=== PATIENT | female | born 1960 | race Caucasian/White ===

== ENCOUNTER 2018-06-11 08:01 | Outpatient (CLI) | payer BC, SELFPAY ==
[2018-06-11 09:27] LABS: HCT 42.9 % (36.0-46.0); HGB 13.9 g/dL (12.0-15.5); Mean Corp. HGB Concentration 32.4 g/dL (32.0-36.0); Mean Corpuscular Hemoglobin 29.7 pg (27.0-33.0); Mean Corpuscular Volume 91.7 fL (80-95); Mean Platelet Volume 9.9 fL (8.0-11.0); Platelet Count 220 x1000/uL (130-400); RBC 4.68 m/cumm (4.00-5.20); White Blood Cell Count 4.43 k/cumm (4.4-10.8)
[2018-06-11 09:35] LABS: ALT 21 U/L (12-78); AST 17 U/L (15-37); Albumin 3.7 g/dL (3.4-5.0); Alkaline Phosphatase 101 U/L (46-116); Anion Gap 9.5 mmol/L (3-11); BUN 18 mg/dL (7-18); Bilirubin, Total 0.5 mg/dL (0.2-1.0); CO2 26.5 mmol/L (21.0-32.0); CREATININE 0.66 mg/dL (0.55-1.02); Calcium 8.8 mg/dL (8.5-10.1); Chloride 104 mmol/L (98-107); Cholesterol 227 mg/dL (50-200); Glucose 96 mg/dL (70-100); HDL Cholesterol 81 mg/dL (40-60); LDL CHOLESTEROL 124 mg/dL (<100); Potassium 4.3 mmol/L (3.5-5.1); Sodium 140 mmol/L (136-145); Total Protein 7.4 g/dL (6.4-8.2); Triglyceride 83 mg/dL (30-150)
== END 2018-06-11 08:21 ==
PROVIDERS: PCP Family Medicine; Visit Provider Family Medicine
DX: Z00.00 Encounter for general adult medical examination without abnormal findings (principal); Z13.220 Encounter for screening for lipoid disorders; Z13.228 Encounter for screening for other metabolic disorders; Z13.0 Encounter for screening for diseases of the blood and blood-forming organs and certain disorders involving the immune mechanism; Z78.0 Asymptomatic menopausal state
CPT/HCPCS: 36415; 80053; 80061; 83721; 85027

== ENCOUNTER 2018-09-03 13:56 | Outpatient (CLI) | payer BC, SELFPAY ==
--- NOTE | 2018-09-03 15:00 | DI.RAD_ITS ---
SYMPTOMS/DIAGNOSIS: [facility], Z00.00, MENOPAUSE, Z78.0 DEXA SCAN: DEXA scan was performed according to the usual protocol. Findings for lumbar spine scanning are a T score of -0.4. Findings for left hip scanning are a T score of -0.6 with left femoral neck T score of -0.5. Findings for left forearm scanning are a T score of 0.1. CONCLUSION: Findings consistent with normal bone density according to the WHO criteria. The lateral vertebral scanogram shows no evidence of a vertebral compression fracture.
--- NOTE | 2018-09-03 15:16 | DI.MAMMO_ITS ---
SYMPTOM/DIAGNOSIS: SCREENING, Z12.31, [facility], Z00.00 MAMMOGRAMS: Mammograms were interpreted according to the usual protocol including computer analysis with CAD system, tomosynthesis and C view imaging. Comparison is with the prior examinations. There is a question of an area of architectural distortion in the upper left breast seen on the mediolateral oblique view. Spot compression views requested. Ultrasound may be indicated at that time. No other suspicious masses or microcalcifications are seen. The skin and axillae are unremarkable. IMPRESSION: Additional views of the left breast as described above. Category 0, breast density B. MQSA ASSESSMENT OF FINDINGS: Incomplete: Needs additional imaging evaluation. Category 0. Patient will receive a letter notifying them of these results. BI-RADS category B. There are scattered areas of fibroglandular density.
== END 2018-09-03 14:16 ==
PROVIDERS: PCP Family Medicine; Visit Provider Family Medicine
DX: Z00.00 Encounter for general adult medical examination without abnormal findings (principal); Z12.31 Encounter for screening mammogram for malignant neoplasm of breast; R92.8 Other abnormal and inconclusive findings on diagnostic imaging of breast; Z13.820 Encounter for screening for osteoporosis; Z78.0 Asymptomatic menopausal state
CPT/HCPCS: 77063; 77067; 77080

== ENCOUNTER 2018-09-24 00:40 | Outpatient (CLI) | payer BC, SELFPAY ==
--- NOTE | 2018-09-24 14:20 | DI.COMBO_ITS ---
SYMPTOM/DIAGNOSIS: F/U ABNORMAL MAMMO, AREA OF ARCHITECTURAL DISTORTION IN UPPER LEFT BREAST ADDITIONAL VIEWS OF THE LEFT BREAST AND A LEFT BREAST ULTRASOUND: Additional images are interpreted according to the usual protocol including tomosynthesis and 2D imaging. Additional views of the left breast fail to show a persistent discrete mass. A left breast ultrasound was performed. The upper outer and upper inner quadrants were evaluated sonographically. No cystic or solid masses were seen. IMPRESSION: No evidence for malignancy. Yearly mammography is recommended. Category 1, breast density B. The findings were discussed with the patient on the date of the examination. SA ASSESSMENT OF FINDINGS: Negative. Category 1. Patient will receive a letter notifying them of these results. BI-RADS category B. There are scattered areas of fibroglandular density.
== END 2018-09-24 01:00 ==
PROVIDERS: PCP Family Medicine; Visit Provider Family Medicine
DX: Z12.31 Encounter for screening mammogram for malignant neoplasm of breast (principal); R92.8 Other abnormal and inconclusive findings on diagnostic imaging of breast; N64.59 Other signs and symptoms in breast
CPT/HCPCS: 76642; 77063; 77067

== ENCOUNTER 2018-11-07 10:47 | Outpatient (REF) | payer BC, SELFPAY ==
[2018-11-07 21:45] LABS: Bilirubin Negative (Negative); Blood Moderate (Negative); Clarity Clear (Clear); Glucose Negative (Negative); Ketones Negative (Negative); Leukocyte Esterase Small (Negative); Nitrite Negative (Negative); Urobilinogen 0.2 EU/dL (Up TO 0.2)
[2018-11-07 22:01] LABS: Bacteria Few HPF (Negative); C & S Indicated? No; Casts Negative LPF (Negative); Crystals Negative HPF (Negative); Epithelial Cells Rare HPF (Negative); Mucus Negative (Negative); Other Cells Rare Renal (Negative); WBC 0-2 HPF (0-5)
== END 2018-11-07 11:07 ==
LOC: NCHCN 10:47
PROVIDERS: PCP Family Medicine; Visit Provider Family Medicine
DX: R30.0 Dysuria (principal)
CPT/HCPCS: 81003; 81015

== ENCOUNTER 2018-12-25 12:53 | Outpatient (REF) | payer BC, SELFPAY | END 2018-12-25 13:13 | LOC: NCHCN 12:53 | PROVIDERS: PCP Family Medicine; Visit Provider Family Medicine | DX: R30.0 Dysuria (principal) | CPT/HCPCS: 87086 ==

== ENCOUNTER 2020-03-16 02:44 | Outpatient (CLI) | payer BC, SELFPAY ==
[2020-03-17 17:19] LABS: COVID-19 RT-PCR UVMMC Result Negative (Negative)
== END 2020-03-16 03:04 ==
PROVIDERS: PCP Family Medicine; Visit Provider Surgery
DX: Z11.52 Encounter for screening for COVID-19 (principal); Z01.818 Encounter for other preprocedural examination
CPT/HCPCS: U0003

== ENCOUNTER 2020-03-19 11:05 | Day surgery (SDC) | payer BC, SELFPAY ==
[2020-03-19 11:35] VITALS: BP 120/84; PULSE 83; RESP 14; TEMP 36.3; O2SAT 98
[2020-03-19] MEDS: Lactated Ringers 1,000 ML 80 ML IV (11:55)
--- NOTE | 2020-03-19 12:42 | HPE_ITS ---
Date of service: 03/19/20 Time of Service: 12:43 Assessment and Plan Assessment and plan (1) Colon polyps: Status: Acute Assessment and plan: Plan:Colonscopy w/ MAC The patient will be scheduled by my office. The pt understands that they need to do a bowel prep and the importance of hydration during this. The patient understands there is a theoretical risk of renal failure. For healthy patients we use Gatorade/Miralax Prep. For anyone with renal concerns- GoLytely will be used. Plavix and coumadin will need to be held except in unusual circumstances. Patients in A. Fib do not need to be bridged with Lovenox or on CVA prophylaxis. A baby ASA can be continued but full dose ASA needs to be stopped for 10 days prior to the procedure. A complete H & P is required within 30 days of the procedure. MAC is used for the colonoscopy. Colonoscopy does not require antibiotics prophylaxis. Risks: Informed consent is obtained for the procedural (explained in simple layman's terms that the pt and/or family could understand) explaining risks vs benefits and alternatives to the procedure and consequences if we do not do the procedure and need/rational for the procedure. Risks include but are not limited to: bleeding, infection, perforation of colon. This would necessitate emergency surgery to repair the damage w/ possible ostomy; and other associated complications w/ the required surgery. Also complications of anesthesia including aspiration, DC/CVA/. I discussed with the patient would they could expect during the procedure, post procedure and recovery time and risks. The patient understands that they need to have a ride home after the procedure. The patient was given all this information in writing and expressed understanding. Thank you for allowing me to participate in the care of this Patient. A copy of the Endoscopy report will be forwarded to your office. If there are any questions or concerns please feel free to contact our office. CARDIAC CONDITION HIGH RISK MODERATE RISK LOW RISK Prosthetic heart valves including bioprosthetic and homograft valves X Prior history of IE X Complex cyanotic congenital heart diseases such as single ventricle states, transpostion of the great arteries, and tetralogy of Fallot X Surgically constructed systemic or pulmonary conduits X History of Present Illness Consults Consult date: 03/19/20 Narrative: The patient is here for Colonoscopy pre-op. Last Colonoscopy was a number of years ago, which she reports was remarkable for polyps. She has no family history of colon cancer. She has not had any bowel habit changes. -Discussed colonoscopy bowel prep as well as the procedure. Discussed possible complications of the procedure to include bleeding, pain, perforation, missed small lesion/polyp, sore throat, aspiration and adverse reaction to the medications. Questions were answered to patient?s satisfaction. No guarantees were implied or given. She will hold her Vitamin D and herbal supplements x 5 days prior to her procedure. Risks: Informed consent is obtained for the procedural (explained in simple layman's terms that the pt and/or family could understand) explaining risks vs benefits and alternatives to the procedure and consequences if we do not do the procedure and need/rational for the procedure. Risks include but are not limited to: bleeding, infection, perforation of colon. This would necessitate emergency surgery to repair the damage w/ possible ostomy; and other associated complications w/ the required surgery. Also complications of anesthesia including aspiration, DC/CVA/. I discussed with the patient would they could expect during the procedure, post procedure and recovery time and risks. The patient understands that they need to have a ride home after the procedure. The patient was given all this information in writing and expressed understanding. I have no history of her last colonoscopy report or pathology. [facility] Medical History (Updated 03/19/20 @ 12:47 by Luisana Martinez DO) Bee sting allergy Colon polyps Food allergy Surgical History History of colonoscopy Social History Smoking/Tobacco Use Status: Never Smoking risk assessment performed?: Yes Alcohol Intake: current Alcohol Intake frequency: 0-2 drinks per day Alcohol type: wine Drug use: Never Substance use type: does not use Do you feel safe at home: Yes Do you feel safe in your relationship?: Yes Meds Home Medications and Allergies Home Medications Medication Instructions Recorded Confirmed Type cholecalciferol (vitamin D3) 10 10 mcg PO DAILY 10/24/19 03/19/20 History mcg (400 unit) capsule conjugated estrogens 0.625 mg/gram 0.625 mg VG DAILY 10/24/19 03/19/20 History vaginal cream cranberry extract 250 mg capsule 250 mg PO DAILY 02/13/20 03/19/20 History multivitamin 1 tab PO DAILY 02/13/20 03/19/20 History polyethylene glycol 3350 17 238 g PO ONCE #238 g 02/13/20 03/19/20 Rx gram/dose oral powder bisacodyl 5 mg tablet,delayed 5 mg PO ONCE #4 tab 03/10/20 03/19/20 Rx release Allergies Allergy/AdvReac Type Severity Reaction Status Date / Time sulfamethoxazole Allergy Mild Fever and Verified 02/13/20 14:31 [From Bactrim] Hives trimethoprim [From Bactrim] Allergy Mild fever and Verified 02/13/20 14:31 hives Exam Narrative Exam Narrative: GENERAL APPEARANCE: Alert, healthy appearance, oriented, in no acute distress HYDRATION: Well hydrated HEAD, EYES, EARS, NECK, and Throat: Head is normocephalic, pupils equal, round, reactive to light and accommodation, ocular movement intact, sclera clear and no jaundice. Dentition intact. NECK: Supple, no lymphadenopathy, LUNGS: normal respiration, clear to auscultation HEART: Regular rate and rhythm, normal heart sounds, EXTREMITY: No edema or cyanosis, ABDOMEN: soft and non-tender today NEURO: CN: Intact. Results Last Vital Signs Temp 36.3 C L 03/19/20 11:35 Pulse 83 03/19/20 11:35 Resp 14 03/19/20 11:35 BP 120/84 03/19/20 11:35 Pulse Ox 98 03/19/20 11:35 COVID-19 Screening Have you, or household traveled for leisure in last 14 days?: No Had IN PERSON contact w/suspected or confirmed C-19 person: No
--- NOTE | 2020-03-19 13:03 | W.PM.DSUDISC ---
Discharge Plan Disposition Patient Disposition: HOME Condition: Good Discharge Details Reason For Visit: colon scope Attending Provider: Luisana Martinez Primary Care Provider: Lilliana Bhakta Home Meds and New Rx's Prescriptions: Continued multivitamin Tablet 1 tab PO DAILY RF: 0 cranberry extract 250 mg capsule 250 mg PO DAILY RF: 0 cholecalciferol (vitamin D3) 10 mcg (400 unit) capsule 10 mcg PO DAILY RF: 0 Premarin 0.625 mg/gram cream 0.625 mg VG DAILY RF: 0 Discontinued polyethylene glycol 3350 17 gram/dose powder 238 g PO ONCE Qty: 238 RF: 0 bisacodyl [Dulcolax (bisacodyl)] 5 mg tablet,delayed release (DR/EC) 5 mg PO ONCE Qty: 4 RF: 0 Discharge Instructions Additional Instructions: Findings:normal Follow up: if you develop any abdominal pain that persists after more than 48hrs, unexplained weight loss, pain or difficulty having a BM that persists for more than two weeks, or rectal bleeding that persists after 2 weeks., seek medical attention. Please call if you develop: fevers >101.5 Nausea or Vomiting Abdominal pain that is not transient DAY SURGERY UNIT POST COLONOSCOPY INSTRUCTIONS 1. Because there will be medication in your system for the next 24 hours, you may feel a little sleepy. Your coordination will be affected. Therefore: a. Do not drive or operate dangerous equipment for 24 hours. b. Do not drink alcohol beverages for 24 hours (not even beer). c. Plan to go home and rest for the day. 2. Generally there are no restrictions on your activity after a day or so has gone by, but you may feel a bit fatigued for a few days. 3 After you arrive home you may have a light meal and return to a normal diet as you can tolerate it without feeling sick to your stomach. 4. After surgery, you may feel pain or discomfort. This should be only transient, but if it persists please contact your doctor. 5. If there are any questions regarding the findings of your procedure, please feel free to contact your doctor. 6. If you are unable to contact your doctor with a problem, contact the hospital at [phone]. 7. Continue all your regular medications unless directed otherwise. I understand the above instructions and have no questions. Signature of Patient or Responsible Adult Escort Date/Time Name of Responsible Adult Escort Signature of Nurse Date/Time Activity:: no lifting over 20 pounds or strenuous activity x24 hours. Diet:: Small light meals x24 hours. DS: Diagnosis Discharge Diagnosis (1) Colon polyps: Status: Acute
[2020-03-19 14:05] VITALS: BP 129/74; PULSE 61; RESP 18; TEMP 36; O2SAT 99
--- NOTE | 2020-03-28 21:19 | W.COLOREPORT ---
Date of service: 03/19/20 Time of Service: 11:00 Colonoscopy Report Date of procedure: 03/19/20 Pre-op diagnosis general: a. POLYPS Post-op diagnosis procedure note: same Surgeon: Luisana Martinez Anesthesia proc note operative: GETA Pathology: none sent Complications: None Disposition: same day Prep: Miralax/Dulcolax Retraction Time: 9MINS Procedure Description: After informed consent was obtained the patient was taken to the procedure room and placed in a left decubitous position. Monitors were applied and a time out was done. The patients name, date of , procedure, allergies to medications and metal in their body was reviewed. The patient was then sedated. Once sedated and comfortable a rectal exam was done. External exam was normal. Internal exam revealed a normal sphincter tone and no palpable masses. The scope was then introduced and retrofelexed. no internal hemorrhoids were identified. The scope was then advanced to the cecum w/out difficulty. The TI and appendiceal orifice were identified. The prep was good. The scope was then slowly retracted over 9 minutes back into the rectum. There were no AVMs, polyps, diverticula apparent. The mucosa is pink and healthy.. The scope was removed and the patient was woken up and taken back to Same day surgery in stable condition. The patient tolerated the procedure well and there were no immediate complications. Follow up: The patient should follow up in 10 years unless they develop changes in bowel habits or other new gastrointestinal complaints.
== END 2020-03-19 14:18 | disposition home or self-care (01) ==
PROVIDERS: PCP Family Medicine; Visit Provider Surgery
PROC: 0DJD8ZZ Inspection of Lower Intestinal Tract, Via Natural or Artificial Opening Endoscopic (ICD-10-PCS; CPT 45378; principal; 2020-03-19 11:30)
DX: Z12.11 Encounter for screening for malignant neoplasm of colon (principal); Z86.010 Personal history of colon polyps
CPT/HCPCS: 45378; 99221; J2001

== ENCOUNTER 2020-10-29 09:25 | Outpatient (REF) | payer BC, SELFPAY ==
[2020-10-29 13:21] LABS: HCT 43.9 % (36.0-46.0); MCH 30.1 pg (27.0-33.0); MCHC 31.9 % (32.0-36.0); MCV 94.4 fL (80-95); Platelet Count 214 10^3/uL (130-400); RBC 4.65 10^6/uL (3.93-5.22); RDW 12.9 % (11.7-14.6); RDW-SD 44.7 fL; WBC 5.69 10^3/uL (4.4-10.8)
[2020-10-29 13:40] LABS: ALT 27 U/L (14-59); AST 25 U/L (15-37); Albumin 3.9 g/dL (3.4-5.0); Alkaline Phosphatase 97 U/L (46-116); Anion Gap 6.8 mmol/L (3-11); BUN 18 mg/dL (7-18); Bilirubin, Total 0.7 mg/dL (0.2-1.0); CO2 30.2 mmol/L (21.0-32.0); CREATININE 0.8 mg/dL (0.55-1.02); Calculated LDL 137 mg/dL (<100); Chloride 105 mmol/L (98-107); Cholesterol 247 mg/dL (<200); Glucose 94 mg/dL (74-106); HDL Cholesterol 87 mg/dL (40-60); Potassium 4.6 mmol/L (3.5-5.1); Sodium 142 mmol/L (136-145); Total Protein 7.5 g/dL (6.4-8.2); Triglyceride 116 mg/dL (<150)
== END 2020-10-29 09:26 | disposition home or self-care (01) ==
LOC: NCHCN 09:25
PROVIDERS: PCP Family Medicine; Visit Provider Family Medicine
DX: Z00.00 Encounter for general adult medical examination without abnormal findings (principal)
CPT/HCPCS: 80053; 80061; 85027

== ENCOUNTER 2020-11-04 10:42 | Outpatient (REF) | payer BC, SELFPAY ==
--- NOTE | 2020-11-04 09:00 | PAPFT_PTH ---
PATIENT: Sandra Veronica LOC: [facility]#:[id number] AGE/SX: 59/F ROOM: RE11/04/[address]: Lilliana Bhakta : 1960 BED: DIS: 11/04/2020 SPEC #: [id number] RECD: 11/04/20 18:25 STATUS: [facility] [place] #: [id number] YVETTE: 11/04/20 09:[address]: Lilliana Bhakta DEPT: [facility] Cytology RECD BY: Apryl Rivera Tissues: 1 - CX/ENDOCX FOR PAP SMEARS Procedures: PAP THIN PREP/UVM Screening HPV DNA PROBE Comments: [id number]
== END 2020-11-04 10:43 | disposition home or self-care (01) ==
LOC: NCHCN 10:42
PROVIDERS: PCP Family Medicine; Visit Provider Family Medicine
DX: Z00.00 Encounter for general adult medical examination without abnormal findings (principal); Z12.4 Encounter for screening for malignant neoplasm of cervix; Z01.419 Encounter for gynecological examination (general) (routine) without abnormal findings; Z11.51 Encounter for screening for human papillomavirus (HPV)
CPT/HCPCS: 88142; 87624

== ENCOUNTER 2020-11-25 02:19 | Outpatient (CLI) | payer BC, SELFPAY ==
--- NOTE | 2020-11-25 12:20 | DI.MAMMO_ITS ---
Exam(s) MAMMO SCREENING EXAM: MAMMO SCREENING CLINICAL HISTORY: SCREENING,Z12.31 TECHNIQUE: Bilateral full field digital CC and MLO mammographic images were obtained with 3D tomosyn thesis and utilizing computer aided detection (CAD). COMPARISON: Available for comparison. FINDINGS: Masses/Architectural Distortion: None seen. Microcalcifications: No suspicious pleomorphic-type are seen. Skin Thickening/Nipple Retraction: None. IMPRESSION: 1. No significant interval change with no specific features of malignancy noted. 2. Unless there is more urgent need, screening mammography is recommended, as per [place] [employer] guidelines. BI-RADS Category 1 - Negative Breast Density - Category B - Scattered areas of fibroglandular density Breast density category C or D implies that the patient has dense breast tissue. Dense breast tissue is very common and is not abnormal but dense breast tissue can make it harder to find cancer on a ma mmogram. Also, dense breast tissue may increase their breast cancer risk. This information about the result of the mammogram report was provided to the patient to raise their awareness. Use this report when you speak with the patient about their risks for breast cancer, which includes their family hist ory. At that time, you may recommend for more screening tests (Ultrasound or MRI) as they might be us eful based on their risk. A negative radiographic report should not delay biopsy if a dominant or clinically suspicious mass is present. Up to ten percent of cancers are not identified on mammography. A negative report may reinforce clinical impression. Adenosis and dense breasts may obscure an underlying neoplasm. False positive reports average 6 to 10%. Patient will receive a letter notifying them of these results.
== END 2020-11-25 02:39 ==
PROVIDERS: PCP Family Medicine; Visit Provider Family Medicine
DX: Z12.31 Encounter for screening mammogram for malignant neoplasm of breast (principal)
CPT/HCPCS: 77063; 77067

== ENCOUNTER 2021-08-15 14:21 | Outpatient (REF) | payer BC, SELFPAY | END 2021-08-15 14:22 | disposition home or self-care (01) | LOC: NCHCN 14:21 | PROVIDERS: PCP Family Medicine; Visit Provider Family Medicine | DX: R30.0 Dysuria (principal) | CPT/HCPCS: 87086 ==

== ENCOUNTER 2021-08-24 14:38 | Outpatient (REF) | payer BC, SELFPAY | END 2021-08-24 14:39 | disposition home or self-care (01) | LOC: NCHCN 14:38 | PROVIDERS: PCP Family Medicine; Visit Provider Family Medicine | DX: R30.0 Dysuria (principal) | CPT/HCPCS: 87086 ==

== ENCOUNTER 2022-04-05 09:46 | Outpatient (REF) | payer BC, SELFPAY ==
[2022-04-05 15:28] LABS: HCT 42.8 % (36.0-46.0); HGB 13.9 g/dL (11.2-15.7); MCH 29.6 pg (27.0-33.0); MCHC 32.5 % (32.0-36.0); MCV 91 fL (80-95); MPV 9.9 fL (8.0-11.0); Platelet Count 213 10^3/uL (130-400); RBC 4.69 10^6/uL (3.93-5.22); RDW 12.9 % (11.7-14.6); RDW-SD 42.8 fL; WBC 5.28 10^3/uL (4.4-10.8)
[2022-04-05 15:34] LABS: ALT 18 U/L (14-59); AST 24 U/L (15-37); Albumin 3.9 g/dL (3.4-5.0); Alkaline Phosphatase 90 U/L (46-116); Anion Gap 7.7 mmol/L (3-11); BUN 16 mg/dL (7-18); Bilirubin, Total 0.7 mg/dL (0.2-1.0); CO2 28.3 mmol/L (21.0-32.0); CREATININE 0.8 mg/dL (0.55-1.02); Calcium 9.1 mg/dL (8.5-10.1); Calculated LDL 140 mg/dL (<100); Chloride 102 mmol/L (98-107); Cholesterol 257 mg/dL (<200); Estimated GFR 82.74 (mL/min/1.73m2); Glucose 87 mg/dL (74-106); HDL Cholesterol 102 mg/dL (40-60); Potassium 4.8 mmol/L (3.5-5.1); Sodium 138 mmol/L (136-145); Total Protein 7.5 g/dL (6.4-8.2); Triglyceride 78 mg/dL (<150)
== END 2022-04-05 09:47 | disposition home or self-care (01) ==
LOC: NCHCN 09:46
PROVIDERS: PCP Family Medicine; Visit Provider Family Medicine
DX: Z00.00 Encounter for general adult medical examination without abnormal findings (principal)
CPT/HCPCS: 80053; 80061; 85027

== ENCOUNTER → 2022-12-11 01:02 | Outpatient (CLI) | payer BC, SELFPAY ==
--- NOTE | 2022-12-11 | DI.MAMMO_ITS ---
Exam(s) MAMMO SCREENING EXAM: MAMMO SCREENING CLINICAL HISTORY: SCREENING, Z12.31 TECHNIQUE: Bilateral full field digital CC and MLO mammographic images were obtained with 3D tomosyn thesis and utilizing computer aided detection (CAD). COMPARISON: Available for comparison. FINDINGS: Masses/Architectural Distortion: None seen. Microcalcifications: No suspicious pleomorphic-type are seen. Skin Thickening/Nipple Retraction: None. IMPRESSION: 1. No significant interval change with no specific features of malignancy noted. 2. Unless there is more urgent need, screening mammography is recommended, as per [employer] guidelines. BI-RADS Category 1 - Negative Breast Density - Category B - Scattered areas of fibroglandular density Breast density category C or D implies that the patient has dense breast tissue. Dense breast tissue is very common and is not abnormal but dense breast tissue can make it harder to find cancer on a ma mmogram. Also, dense breast tissue may increase their breast cancer risk. This information about the result of the mammogram report was provided to the patient to raise their awareness. Use this report when you speak with the patient about their risks for breast cancer, which includes their family hist ory. At that time, you may recommend for more screening tests (Ultrasound or MRI) as they might be us eful based on their risk. A negative radiographic report should not delay biopsy if a dominant or clinically suspicious mass is present. Up to ten percent of cancers are not identified on mammography. A negative report may reinforce clinical impression. Adenosis and dense breasts may obscure an underlying neoplasm. False positive reports average 6 to 10%. Patient will receive a letter notifying them of these results.
== END ==
PROVIDERS: PCP Family Medicine; Visit Provider Family Medicine
DX: Z12.31 Encounter for screening mammogram for malignant neoplasm of breast (principal)
CPT/HCPCS: 77063; 77067

== ENCOUNTER 2023-04-12 09:57 | Outpatient (REF) | payer BC, SELFPAY ==
[2023-04-12 16:09] LABS: Vitamin D 25 Total 32.9 ng/mL (30-100)
== END 2023-04-12 09:58 | disposition home or self-care (01) ==
LOC: NCHCN 09:57
PROVIDERS: PCP Family Medicine; Referring Provider Family Medicine; Visit Provider Family Medicine
DX: Z00.00 Encounter for general adult medical examination without abnormal findings (principal); Z13.21 Encounter for screening for nutritional disorder
CPT/HCPCS: 80061; 82306

== ENCOUNTER 2023-04-27 17:07 | Outpatient (REF) | payer BC, SELFPAY | END 2023-04-27 17:08 | disposition home or self-care (01) | LOC: NCHCN 17:07 | PROVIDERS: PCP Family Medicine; Visit Provider Family Medicine | DX: R30.0 Dysuria (principal); R82.89 Other abnormal findings on cytological and histological examination of urine | CPT/HCPCS: 87086 ==

== ENCOUNTER 2023-05-16 12:49 | Outpatient (REF) | payer BC, SELFPAY ==
[2023-05-16 15:06] LABS: Calculated LDL 129 mg/dL (<100); Cholesterol 244 mg/dL (<200); HDL Cholesterol 101 mg/dL (40-60); Triglyceride 70 mg/dL (<150)
== END 2023-05-16 12:50 | disposition home or self-care (01) ==
LOC: NCHCN 12:49
PROVIDERS: PCP Family Medicine; Referring Provider Family Medicine; Visit Provider Family Medicine
DX: Z00.00 Encounter for general adult medical examination without abnormal findings (principal); Z13.220 Encounter for screening for lipoid disorders
CPT/HCPCS: 80061

== ENCOUNTER 2023-06-09 15:22 | Emergency (ER) | payer BC, SELFPAY ==
[2023-06-09 15:27] VITALS: BP 150/83; PULSE 63; RESP 16; TEMP 36.2; O2SAT 99
[2023-06-09 15:32] VITALS: BP 150/83; PULSE 63; RESP 16; TEMP 36.2; O2SAT 99
[2023-06-09 17:14] VITALS: BP 172/78; PULSE 56; RESP 16; O2SAT 99
[2023-06-09] MEDS: Fluorescein STRIPS 100/BOX 1 MG OP (17:32)
[2023-06-09] MEDS: Tetracaine 0.5% 4 ML BTL (17:54)
[2023-06-09] MEDS: Erythromycin Ophth Oint 3.5 GM TUBE (18:09)
--- NOTE | 2023-06-09 19:38 | ED.GENADUL_ITS ---
Discharge Plan Disposition Patient Disposition: Home Condition: Stable Discharge Details Clinical Impression: Conjunctivitis Primary Care Provider: Lilliana Bhakta ED Provider: Apryl Melgoza Home Meds and New Rx's Prescriptions: Continued multivitamin Tablet 1 tab PO DAILY cranberry extract 250 mg capsule 250 mg PO DAILY Rx Instructions: administer with a meal cholecalciferol (vitamin D3) 10 mcg (400 unit) capsule 10 mcg PO DAILY Premarin 0.625 mg/gram cream 0.625 mg VG DAILY Rx Instructions: off 5 days; repeat cycle Discharge Instructions Instructions: Conjunctivitis (ED) Additional Instructions: use cipro drops every 6 hours while awake use for the next 7 days wash hands and refrain from rubbing eyes return earlier with spreading redness, fever worsening pain see opthalmology sunday if no symptomatic improvemetn Referrals: Lilliana Bhakta [Primary Care Provider] - Discharge Data Discharge Date/Time-TO BE ENTERED AT DEPARTURE: 06/09/23 18:12 HPI General Date/Time Provider Initiated Documentation: 06/09/23 16:31 . HPI Narrative: This 62-year-old female presents with report of right eye pain which started 24 hours ago. Also has had some upper respiratory congestion. Granddaughter and patient's daughter both have had conjunctivitis this week. Patient states she had purulent drainage this morning and irritation to her right eye, she denies contact lens use or additional complaints at this time. Denies any fever or chills. Denies any significant vision change. Related Data Home Medications Medication Instructions Recorded Confirmed cholecalciferol (vitamin D3) 10 10 mcg PO DAILY 10/24/19 06/09/23 mcg (400 unit) capsule conjugated estrogens 0.625 mg/gram 0.625 mg vaginal DAILY 10/24/19 06/09/23 vaginal cream (Premarin) cranberry extract 250 mg capsule 250 mg PO DAILY 02/13/20 06/09/23 multivitamin 1 tab PO DAILY 02/13/20 06/09/23 Allergies Allergy/AdvReac Type Severity Reaction Status Date / Time sulfamethoxazole Allergy Mild Fever and Verified 06/09/23 15:29 [From Bactrim] Hives trimethoprim [From Bactrim] Allergy Mild fever and Verified 06/09/23 15:29 hives General Stated Complaint: EyeProblem SHAYY: 4 Course Vital Signs Vital signs: Vital Signs Temperature 36.2 C L 06/09/23 15:27 Pulse 63 06/09/23 15:27 Respiratory Rate 16 06/09/23 15:27 Blood Pressure 150/83 H 06/09/23 15:27 Pulse Oximetry 99 06/09/23 15:27 Temperature 36.2 C L 06/09/23 15:32 Pulse 56 L 06/09/23 17:14 Pulse Rhythm Regular 06/09/23 17:14 Pulse Strength Normal 06/09/23 17:14 Respiratory Rate 16 06/09/23 17:14 Respiratory Effort Normal, Non-Labored 06/09/23 17:14 Respiratory Depth Normal 06/09/23 17:14 Respiratory Pattern Normal 06/09/23 17:14 Blood Pressure 172/78 H 06/09/23 17:14 Blood Pressure Mean 109 06/09/23 17:14 Blood Pressure Position Sitting 06/09/23 17:14 Pulse Oximetry 99 06/09/23 17:14 Oxygen Delivery Method Room Air 06/09/23 17:14 Oxygen Flow Rate 0 06/09/23 17:14 Medical Decision Making Right eye with injection, purulent drainage, pupil equal round reactive to light and accommodation, extraocular muscles intact, lids everted without evidence of foreign body, fluorescein was used to evaluate for corneal trauma, negative slit lamp exam, suspect conjunctivitis clinically, will place patient on erythromycin ointment Visual acuity 20/40 OD, OU, OS Blood pressure checked by primary care physician Afebrile, nontoxic, cardiac rate rhythm regular, no respiratory distress, uvula midline Quality:SDOH Health Related Social Needs: No Data to Display PFSH All Active Problems (Updated 06/09/23 @ 17:52 by CHAY Romano) Conjunctivitis (Acute) Colon polyps (Acute) Medical History (Updated 06/09/23 @ 17:52 by CHAY Romano) Food allergy Bee sting allergy Surgical History (Updated 04/08/20 @ 08:11 by Rylie Bangura RN) History of colonoscopy (~03/19/20) Social History Smoking/Tobacco Use Status: Never Smoking risk assessment performed?: Yes Alcohol Intake: current Alcohol Intake frequency: 0-2 drinks per day Alcohol type: wine Drug use: Never Substance use type: does not use Do you feel safe at home: Yes Do you feel safe in your relationship?: Yes PAWSS Have you Been Recently Intoxicated or Drunk Within the Last 30 days?: No Have you Ever Experienced Previous Episodes of Alcohol Withdrawal?: No Have you ever Experienced Withdrawal Seizures?: No Have you ever Experienced Delirium Tremens(DT)s?: No Have you ever undergone Alcohol Rehabilitation Treatment (i.e, inpt ot outpatien t treatment programs)?: No Have you ever Experienced Blackouts?: No Have you ever Combined Alcohol with other Downers within the last 90 days?: No Have you ever Combined Alcohol with any other Substance of Abuse during the last 90 days?: No Result: 0
== END 2023-06-09 18:12 | disposition home or self-care (01) ==
PROVIDERS: Emergency Provider Physician Assistant; PCP Family Medicine
DX: H10.9 Unspecified conjunctivitis (principal)
CPT/HCPCS: 99283

== ENCOUNTER 2024-04-28 10:01 | Outpatient (REF) | payer BC, SELFPAY ==
[2024-04-28 16:32] LABS: ALT 14 U/L (14-59); AST 21 U/L (15-37); Albumin 3.7 g/dL (3.4-5.0); Alkaline Phosphatase 95 U/L (46-116); BUN 13 mg/dL (7-18); Bilirubin, Total 0.67 mg/dL (0.2-1.0); CREATININE 0.8 mg/dL (0.55-1.02); Calculated LDL 138 mg/dL (<100); Chloride 106 mmol/L (98-107); Cholesterol 257 mg/dL (<200); Estimated GFR 81.72 (mL/min/1.73m2); Glucose 91 mg/dL (74-106); HDL Cholesterol 97 mg/dL (>or=50); Sodium 143 mmol/L (136-145); Total Protein 7.5 g/dL (6.4-8.2); Triglyceride 111 mg/dL (<150); Vitamin D 25 Total 32.3 ng/mL (30-100)
== END 2024-04-28 10:02 | disposition home or self-care (01) ==
LOC: NCHCN 10:01
PROVIDERS: PCP Family Medicine; Visit Provider Family Medicine
DX: Z00.00 Encounter for general adult medical examination without abnormal findings (principal)
CPT/HCPCS: 80053; 80061; 82306

== ENCOUNTER 2024-11-27 04:24 | Outpatient (CLI) | payer BC, SELFPAY ==
--- NOTE | 2024-11-27 | DI.MAMMO_ITS ---
Exam(s) MAMMO SCREENING EXAM: MAMMO SCREENING CLINICAL HISTORY: SCREENING MAMMO Z12.31. TECHNIQUE: Bilateral full field digital CC and MLO mammographic images were obtained with 3D tomosynthesis and utilizing computer aided detection (CAD). COMPARISON: Prior mammograms were reviewed. FINDINGS: There has been no significant change in the appearance and distribution of the fibroglandular tissue. There are no new spiculated masses nor malignant appearing microcalcification groups. There is no significant architectural distortion nor skin thickening-retraction. IMPRESSION: No radiographic evidence of malignancy. BI-RADS Category 1 - Negative Breast Density - Category B - There are scattered areas of fibroglandular density. Breast density Category C or D implies that the patient has dense breast tissue. Dense breast tissue can make it harder to find cancer on a mammogram. Dense breast tissue is also associated with an increased risk of breast cancer. This information about the result of the mammogram report was provided to the patient to raise their awareness. Use this report when you speak with the patient about their risks for breast cancer, which includes their family history. At that time, you may recommend additional screening tests (Ultrasound or MRI) as these tests may add significant information. A negative radiographic report should not delay biopsy if a dominant or clinically suspicious mass is present. Up to ten percent of cancers are not identified on mammography. A negative report may reinforce clinical impression. Adenosis and dense breasts may obscure an underlying neoplasm. False positive reports average 6 to 10%. Patient will receive a letter notifying them of these results.
== END 2024-11-27 04:44 ==
PROVIDERS: PCP Family Medicine; Visit Provider Family Medicine
DX: Z12.31 Encounter for screening mammogram for malignant neoplasm of breast (principal); R92.323 Mammographic fibroglandular density, bilateral breasts
CPT/HCPCS: 77063; 77067